=== PATIENT | female | born 1980 | race Caucasian/White ===

== ENCOUNTER 2016-05-12 09:33 | Outpatient (CLI) | payer BC ==
[~2016-05-12] VITALS: Ht 154.9 cm; Wt 67.1 kg
[~2016-05-12 09:33] MED LIST: MOTRIN600 MG PO; NORCO 5/3251 TABLET PO; PRENATAL TABLE1 EAC3 PO; SYNTHROID75 MCG PO; TYLENOL REGULA325 MG PO
[2016-05-12 09:56] VITALS: BP 124/88
[2016-05-12 10:07] LABS: EOSINOPHIL (%) 0.5 % (0-5); EOSINOPHIL COUNT 0.1 K/uL (0-0.3); HEMATOCRIT 38.5 % (36.0-46.0); IMMATURE GRANULOCYTE (%) 0.3 % (0.0-0.7); LYMPHOCYTE COUNT 1.3 K/uL (1.0-2.8); MCH 30.5 PG (29.0-34.0); MCHC 32.7 G/DL (30.0-36.0); MCV 93.2 FL (83-99); MEAN PLAT.VOLUME 10.4 uM^3 (9.5-12.4); MONOCYTE COUNT 0.8 K/uL (0-0.8); NEUTROPHIL (%) 77.7 % (45-76); NEUTROPHIL COUNT 7.6 K/uL (1.8-6.4); PLATELET COUNT 242 K/uL (156-360); RBC DIS.WIDTH-CV 12.4 % (11.8-14.6); RED BLOOD COUNT 4.13 M/uL (3.80-5.20); WHITE BLOOD COUNT 9.8 K/uL (4.1-10.2)
[2016-05-12 10:12] VITALS: BP 113/79
[2016-05-12] MEDS ORDERED: SYNTHROID50 MCG PO (10:12)
[2016-05-12 10:26] VITALS: BP 113/73
[2016-05-12 10:32] LABS: ANION GAP 10 MEQ/L (2-14); CHLORIDE 105 MEQ/L (99-109); POTASSIUM 3.9 MEQ/L (3.7-5.4); SAMPLE HEMOLYSIS CHECK 0; SAMPLE ICTERIC CHECK 0; SAMPLE LIPEMIA CHECK 0; SODIUM 136 MEQ/L (136-147); TOTAL BILIRUBIN 0.3 MG/DL (0.0-1.0)
[2016-05-12 10:37] LABS: ALKALINE PHOSPHATASE 153 IU/L (3-129); GFR ESTIMATE (CALCULATED) > 59 mL/min/; LACTATE DEHYDROGENASE 105 IU/L (20-246); UREA NITROGEN (BUN) 10 mg/dL (9-23); URIC ACID 5.6 mg/dL (3.1-9.2)
[2016-05-12 10:41] LABS: GLUCOSE 91 mg/dL (70-99)
[2016-05-12 10:42] VITALS: BP 110/72
[2016-05-12 10:55] LABS: UR CREATININE CONCENTRATION 82.7 MG/DL
[2016-05-12 10:56] VITALS: BP 104/74
== END 2016-05-12 11:26 | disposition home or self-care (01) ==
LOC: LDRP-OP 09:33 → 2WEST 09:34 → LDRP-OP 06-25 16:08
PROVIDERS: Advanced Practice Midwife
DX: O16.3 Unspecified maternal hypertension, third trimester (principal); O99.89 Other specified diseases and conditions complicating pregnancy, childbirth and the puerperium; Z3A.38 38 weeks gestation of pregnancy
CPT/HCPCS: 59025; 80053; 82570; 83615; 84156; 84550; 85025; G0378

== ENCOUNTER 2016-05-21 16:55 | Inpatient (IN) | payer BC ==
[~2016-05-21] VITALS: Ht 154.9 cm; Wt 67.7 kg
[2016-05-21] VITALS (14 sets, daily range): BP systolic 106–139; BP diastolic 63–103
[~2016-05-21 16:55] MED LIST changes: +SYNTHROID50 MCG PO
[2016-05-21 17:58] LABS: EOSINOPHIL (%) 0.6 % (0-5); EOSINOPHIL COUNT 0.1 K/uL (0-0.3); HEMATOCRIT 37.4 % (36.0-46.0); IMMATURE GRANULOCYTE (%) 0.3 % (0.0-0.7); LYMPHOCYTE COUNT 1.8 K/uL (1.0-2.8); MCH 31.8 PG (29.0-34.0); MCHC 34.2 G/DL (30.0-36.0); MEAN PLAT.VOLUME 10.6 uM^3 (9.5-12.4); MONOCYTE (%) 8.5 % (3-12); MONOCYTE COUNT 0.9 K/uL (0-0.8); NEUTROPHIL (%) 73.5 % (45-76); NEUTROPHIL COUNT 7.7 K/uL (1.8-6.4); PLATELET COUNT 279 K/uL (156-360); RBC DIS.WIDTH-CV 12.4 % (11.8-14.6); RBC DIS.WIDTH-SD 42.1 % (39-53); RED BLOOD COUNT 4.02 M/uL (3.80-5.20); WHITE BLOOD COUNT 10.5 K/uL (4.1-10.2)
[2016-05-21 18:15] LABS: ANION GAP 15 MEQ/L (2-14); CHLORIDE 102 MEQ/L (99-109); SAMPLE HEMOLYSIS CHECK 0; SAMPLE ICTERIC CHECK 0; SAMPLE LIPEMIA CHECK 0; SODIUM 137 MEQ/L (136-147); TOTAL BILIRUBIN 0.4 MG/DL (0.0-1.0)
[2016-05-21 18:17] LABS: ADD MIUA? NO; BILIRUBIN NEGATIVE; BLOOD NEGATIVE; COLOR YELLOW ((YELLOW)); GLUCOSE (STRIP) NEGATIVE; KETONES NEGATIVE; LEUKOCYTES NEGATIVE; NITRITE NEGATIVE; PROTEIN (STRIP) NEGATIVE; SPECIFIC GRAVITY 1.014 (1.000-1.030); UCUL ADDED? NO; UROBILINOGEN 0.2 MG/DL (0.2-1.0)
[2016-05-21 18:21] LABS: ALKALINE PHOSPHATASE 186 IU/L (3-129); GFR ESTIMATE (CALCULATED) > 59 mL/min/; GLUCOSE 74 mg/dL (70-99); LACTATE DEHYDROGENASE 119 IU/L (20-246); UREA NITROGEN (BUN) 13 mg/dL (9-23); URIC ACID 5.8 mg/dL (3.1-9.2)
[2016-05-21 18:38] LABS: UR CREATININE CONCENTRATION 39.7 MG/DL
[2016-05-21] MEDS ORDERED: LEVO-T50 MCG PO (20:24)
[2016-05-21] MEDS ORDERED: LEVO-T100 MCG PO (20:25)
[2016-05-22] VITALS (25 sets, daily range): BP systolic 98–137; BP diastolic 63–84
[2016-05-23 08:29] LABS: EOSINOPHIL (%) 0.4 % (0-5); EOSINOPHIL COUNT 0.1 K/uL (0-0.3); HEMATOCRIT 28.8 % (36.0-46.0); IMMATURE GRANULOCYTE (%) 0.2 % (0.0-0.7); LYMPHOCYTE COUNT 1.5 K/uL (1.0-2.8); MCH 30.5 PG (29.0-34.0); MCV 92.6 FL (83-99); MONOCYTE (%) 8.6 % (3-12); MONOCYTE COUNT 1.5 K/uL (0-0.8); NEUTROPHIL (%) 82.4 % (45-76); NEUTROPHIL COUNT 14.6 K/uL (1.8-6.4); PLATELET COUNT 211 K/uL (156-360); RBC DIS.WIDTH-CV 12.6 % (11.8-14.6); RBC DIS.WIDTH-SD 42.6 % (39-53); RED BLOOD COUNT 3.11 M/uL (3.80-5.20); WHITE BLOOD COUNT 17.7 K/uL (4.1-10.2)
[2016-05-23 08:30] VITALS: BP 108/68
[2016-05-23 15:00] VITALS: BP 110/67
[2016-05-23 23:11] VITALS: BP 124/71
[2016-05-24 07:31] VITALS: BP 130/73
[2016-05-24] MEDS ORDERED: BREAST PUMP MC (10:16)
== END 2016-05-24 12:45 | disposition home or self-care (01) | DRG 775 ==
LOC: LDRP-OP 16:55 → 2WEST 16:56 → LDRP-OP 06-24 12:17
PROVIDERS: Advanced Practice Midwife
DX: O13.4 Gestational [pregnancy-induced] hypertension without significant proteinuria, complicating childbirth (principal); O70.3 Fourth degree perineal laceration during delivery; R03.0 Elevated blood-pressure reading, without diagnosis of hypertension; O99.284 Endocrine, nutritional and metabolic diseases complicating childbirth; E03.9 Hypothyroidism, unspecified; E22.1 Hyperprolactinemia; Z37.0 Single live birth; Z3A.39 39 weeks gestation of pregnancy; Z14.1 Cystic fibrosis carrier
CPT/HCPCS: 80053; 81003; 82570; 83615; 84156; 84550; 85025; 85384; C1755; G0378; J0690; J1885; J3010; J7120

== ENCOUNTER 2017-05-25 05:44 | Day surgery (SDC) | payer OTHER ==
[~2017-05-25] VITALS: Ht 154.9 cm; Wt 57.6 kg
[~2017-05-25 05:44] MED LIST changes: +BREAST PUMP MC; +LEVO-T100 MCG PO; +LEVO-T50 MCG PO; +PRENATAL TABLE1 EACH PO; +ZOFRAN ODT4 MG PO
[2017-05-25 06:51] VITALS: BP 118/67
[2017-05-25] MEDS ORDERED: PERCOCET 5/31 TABLET PO (09:10)
[2017-05-25] MEDS ORDERED: COLACE100 MG PO (09:10)
[2017-05-25 10:34] VITALS: BP 102/60
[2017-05-25 11:21] VITALS: BP 126/71
== END 2017-05-25 11:33 | disposition home or self-care (01) ==
LOC: SDC 05:44
PROC: 0FT44ZZ Resection of Gallbladder, Percutaneous Endoscopic Approach (ICD-10-PCS; principal; 2017-05-25)
DX: K80.10 Calculus of gallbladder with chronic cholecystitis without obstruction (principal); E06.3 Autoimmune thyroiditis; E03.9 Hypothyroidism, unspecified
CPT/HCPCS: 88304; J0330; J0690; J1100; J1170; J2250; J3010; S0020